=== PATIENT | female | born 1980 | race Caucasian/White ===

== ENCOUNTER 2016-07-23 15:16 | Emergency (ER) | payer BC, OTHER ==
[2016-07-23 15:46] VITALS: BP 113/74; RESP 16
[2016-07-23] MEDS ORDERED: NS 1,000 ML IV ONE ×2 (16:03→17:03)
[2016-07-23 16:22] LABS: % IMMATURE GRANULYOCYTES 0.3 % (0.0-1.1); ABSOLUTE IMMATURE GRANULOCYTES 0.01 10^3/uL (0.00-0.10); ADD DIFF? NO; ADD MORPH? NO; ADD SCAN? NO; ATYPICAL LYMPHOCYTE FLAG 20 (0-99); FRAGMENT RBC FLAG 0 (0-99); HEMATOCRIT 43.4 % (38.0-47.0); HEMOGLOBIN 15.2 g/dL (12.6-16.3); LEFT SHIFT FLG 0 (0-99); LIPEMIA HEMOLYSIS FLAG 90 (0-99); MEAN CELL HEMOGLOBIN 30.2 pg (27.9-34.1); MEAN CELL VOLUME 86.1 fL (81.5-99.8); PLATELET CLUMPS FLAG 0 (0-99); PLATELET COUNT 190 10^3/uL (150-400); RED BLOOD CELL COUNT 5.04 10^6/uL (4.18-5.33); RED CELL DISTRIBUTION WIDTH 12.2 % (11.5-15.2)
[2016-07-23 16:36] LABS: ANION GAP 14 mEq/L (8-16); CALCIUM 8.9 mg/dL (8.5-10.4); CARBON DIOXIDE 23 mEq/l (22-31); CHLORIDE 101 mEq/L (97-110); CREATININE 0.8 mg/dL (0.6-1.0); GLOMERULAR FILTRATION RATE > 60; GLUCOSE 84 mg/dL (70-100); POTASSIUM 3.8 mEq/L (3.5-5.2); SODIUM 138 mEq/L (134-144)
[2016-07-23] MEDS ORDERED: KETOROLAC 30 MG/1 ML SDV IVP ONE (17:03)
[2016-07-23 17:12] LABS: COLOR YELLOW; LEUKOCYTE ESTERASE,URINE NEGATIVE (NEGATIVE); NITRITE,URINE NEGATIVE (NEGATIVE); PH,URINE 5.5 (5.0-7.5)
--- NOTE | 2016-07-23 17:43 | UCPHY ---
H & P Patient Type: Established Chief Complaint Nursing Narrative: fever x 5 days. Tmax 102.3 per pt. Now has diarrhea since yesterday. Time Seen by Provider: 07/23/16 15:49 HPI/ROS: This patient reports in illness over the past 5 days or so consisting of fevers up to 102.3, chills, myalgias, diaphoresis, vomiting and diarrhea. She felt that her symptoms had significantly improved in terms of resolution of vomiting and diarrhea until today when she had recurrence of frequent loose watery stools. She has associated diminished appetite. She has partial improvement from [id number] antipyretics and analgesics with no other exacerbating factors. ROS: Mild fatigue. No other constitutional symptoms besides the fevers mentioned in HPI. HEENT: No significant nasal congestion. No sore throat. No ear pain. She does have a mild generalized headache consistent with previous headaches described as achy in nature 5/10 intensity. Neuro: No confusion. No neck stiffness. Pulmonary: No cough. Cardiovascular: Mild lightheadedness while standing today. GI: Anorexia and mild nausea. No vomiting for the past few days. No blood in her stool. : No urinary symptoms. 10 point ROS is otherwise negative. Source: Patient Exam Limitations: No limitations - Personal History LMP (Females 10-55): 1-7 Days Ago Current Tetanus Diphtheria and Acellular Pertussis (TDAP): Yes Tetanus Vaccine Date: 2014 - Medical/Surgical History PMH: Depression. Otherwise healthy Hx Asthma: No Hx Chronic Respiratory Disease: No Hx Diabetes: No Hx Cardiac Disease: No Hx Renal Disease: No Hx Cirrhosis: No Hx Alcoholism: No Hx HIV/AIDS: No Hx Splenectomy or Spleen Trauma: No Other PMH: AMA, MIGRANES, HX PP DEPRESSION PP ANXIETY, HX CSECTION 2011, SUBCHORIONIC BLEED AT 7W SONO, 2008 LAPAROTOMY R OVARIAB CYSTECTOMY BENIGN, TONSILS AND ADENOIDS AGE 10 WISDOM TEETH AGE 29 MONO 5TH G, Factor V Leidan deficiency - Family History Significant Family History: No pertinent family hx - Social History Smoking Status: Never smoked Alcohol Use: Occasionally Drug Use: None Additional Social History: No recent foreign travel. Her 4-year-old daughter had similar symptoms that resolved after 3 days. - Physical Exam Exam: General Appearance: Alert, no distress. Eyes: Pupils equal and round no pallor or injection. ENT, Mouth: Mucous membranes dry. Respiratory: There are no retractions, lungs are clear to auscultation. Cardiovascular: Regular rate and rhythm. No murmur gallop or rub Gastrointestinal: Abdomen is soft and nontender, no masses, bowel sounds normal. Neurological: Alert with no focal deficits Skin: Warm and dry, no rashes. Musculoskeletal: Neck is supple nontender. Extremities are symmetrical, full range of motion. Psychiatric: P mood and affect normal DIFFERENTIAL DIAGNOSIS: After history and physical exam differential diagnosis was considered for viral syndrome with diarrhea and dehydration, influenza a, UTI Constitutional: Initial Vital Signs Temperature (C) 37.2 C 07/23/16 15:41 Heart Rate 90 07/23/16 15:41 Respiratory Rate 16 07/23/16 15:41 Blood Pressure 113/74 07/23/16 15:41 O2 Sat (%) 98 07/23/16 15:41 O2 Delivery Mode Room Air Allergies/Adverse Reactions: aspirin Allergy (Verified 07/23/16 15:31) Home Medications: Medication Instructions Recorded Zoloft 25mg (RX) 1 tab PO DAILY 08/18/14 Ondansetron Odt [Zofran Odt] 4 - 8 mg PO Q4PRN PRN #4 tab 07/23/16 Medical Decision Making ED Course/Re-evaluation: IV normal saline bolus x2 L. Toradol with improvement in headache and myalgias. Review of labs reveals mild leukopenia but no neutropenia. Chemistries normal. Urinalysis normal except for ketones influenza negative. Patient is unable to provide a stool sample. Discussion: Findings consistent with viral illness with dehydration. I counseled regarding this. She improved with treatment. - Data Points Laboratory Results: Laboratory Results 07/23/16 16:16 07/23/16 16:16 07/23/16 07/23/16 07/23/16 17:05 17:00 16:16 WBC RBC Hgb Hct MCV MCH MCHC RDW Plt Count MPV Neut % (Auto) Lymph % (Auto) Appling % (Auto) Eos % (Auto) Baso % (Auto) Nucleat RBC Rel Count Absolute Neuts (auto) Absolute Lymphs (auto) Absolute Monos (auto) Absolute Eos (auto) Absolute Basos (auto) Absolute Nucleated RBC Immature Gran % Immature Gran # Sodium 138 mEq/L mEq/L (134-144) Potassium 3.8 mEq/L mEq/L (3.5-5.2) Chloride 101 mEq/L mEq/L (97-110) Carbon Dioxide 23 mEq/l mEq/l (22-31) Anion Gap 14 mEq/L mEq/L (8-16) BUN 12 mg/dL mg/dL (7-23) Creatinine 0.8 mg/dL mg/dL (0.6-1.0) Estimated GFR > 60 Glucose 84 mg/dL mg/dL (70-100) Calcium 8.9 mg/dL mg/dL (8.5-10.4) Urine Color YELLOW Urine Appearance CLEAR Urine pH 5.5 (5.0-7.5) Ur Specific Desdemona 1.015 (1.002-1.030) Urine Protein NEGATIVE (NEGATIVE) Urine Ketones 1+ H (NEGATIVE) Urine Blood NEGATIVE (NEGATIVE) Urine Nitrate NEGATIVE (NEGATIVE) Urine Bilirubin NEGATIVE (NEGATIVE) Urine Urobilinogen 0.2 EU EU (0.2-1.0) Ur Leukocyte Esterase NEGATIVE (NEGATIVE) Urine Glucose NEGATIVE (NEGATIVE) Urine Test NEGATIVE Influenza Typ A,B (DFA) 07/23/16 07/23/16 16:16 15:38 WBC 2.92 10^3/uL L 10^3/uL (3.80-9.50) RBC 5.04 10^6/uL 10^6/uL (4.18-5.33) Hgb 15.2 g/dL g/dL (12.6-16.3) Hct 43.4 % % (38.0-47.0) MCV 86.1 fL fL (81.5-99.8) MCH 30.2 pg pg (27.9-34.1) MCHC 35.0 g/dL g/dL (32.4-36.7) RDW 12.2 % % (11.5-15.2) Plt Count 190 10^3/uL 10^3/uL (150-400) MPV 11.0 fL fL (8.7-11.7) Neut % (Auto) 61.7 % % (39.3-74.2) Lymph % (Auto) 26.0 % % (15.0-45.0) Appling % (Auto) 10.3 % % (4.5-13.0) Eos % (Auto) 1.0 % % (0.6-7.6) Baso % (Auto) 0.7 % % (0.3-1.7) Nucleat RBC Rel Count 0.0 % % (0.0-0.2) Absolute Neuts (auto) 1.80 10^3/uL 10^3/uL (1.70-6.50) Absolute Lymphs (auto) 0.76 10^3/uL L 10^3/uL (1.00-3.00) Absolute Monos (auto) 0.30 10^3/uL 10^3/uL (0.30-0.80) Absolute Eos (auto) 0.03 10^3/uL 10^3/uL (0.03-0.40) Absolute Basos (auto) 0.02 10^3/uL 10^3/uL (0.02-0.10) Absolute Nucleated RBC 0.00 10^3/uL 10^3/uL (0-0.01) Immature Gran % 0.3 % % (0.0-1.1) Immature Gran # 0.01 10^3/uL 10^3/uL (0.00-0.10) Sodium Potassium Chloride Carbon Dioxide Anion Gap BUN Creatinine Estimated GFR Glucose Calcium Urine Color Urine Appearance Urine pH Ur Specific Desdemona Urine Protein Urine Ketones Urine Blood Urine Nitrate Urine Bilirubin Urine Urobilinogen Ur Leukocyte Esterase Urine Glucose Urine Test Influenza Typ A,B (DFA) NEGATIVE FOR FLU (NEGATIVE) Medications Given: Discontinued Medications Sodium Chloride (Ns) 1,000 mls @ 0 mls/hr IV ONCE ONE PRN Reason: Wide Open Stop: 07/23/16 16:04 Last Admin: 07/23/16 16:22 Dose: 1,000 mls Sodium Chloride (Ns) 1,000 mls @ 0 mls/hr IV ONCE ONE PRN Reason: Wide Open Stop: 07/23/16 17:04 Last Admin: 07/23/16 17:05 Dose: 1,000 mls Ketorolac Tromethamine (Toradol) 30 mg IVP EDNOW ONE Stop: 07/23/16 17:04 Last Admin: 07/23/16 17:15 Dose: 30 mg Departure - Departure Disposition: Home, Routine, Self-Care Clinical Impression: Viral syndrome, Acute diarrhea, Dehydration Condition: Good Instructions: Acute Diarrhea (ED), Viral Syndrome (ED) Additional Instructions: Diagnoses: 1. Viral syndrome 2. Acute diarrhea 3. Dehydration Plan: Drink plenty fluids Light diet to feel improved Zofran if needed for nausea vomiting Imodium [id number] for diarrhea as needed Ibuprofen for aches as needed. Your symptoms should improve over the next 1-3 days. Return for any significant worsening despite treatment plan Referrals: NONE *PRIMARY CARE P,. [Primary Care Provider] - As per Instructions Prescriptions: Ondansetron Odt [Zofran Odt] 4 - 8 mg PO Q4PRN PRN #4 tab PRN Reason: Vomiting - PQRS PQRS Measurement: NA
[2016-07-23 18:54] VITALS: PULSE 80; TEMP 98.8; O2SAT 96
== END 2016-07-23 18:21 | disposition home or self-care (01) ==
LOC: CED 15:16
DX: B34.9 Viral infection, unspecified (principal); R19.7 Diarrhea, unspecified; E86.0 Dehydration
CPT/HCPCS: 80048-PO; 81003-PO; 81025-PO; 85025-PO; 87400-PO; 96361-PO; 96374-PO; 99215-PO; G0463-PO; J1885

== ENCOUNTER → 2017-04-01 | Outpatient (CLI) | payer BC | LOC: BMCIMAGING 15:44 | PROVIDERS: ATTEND Physician Assistant | DX: M25.562 Pain in left knee (principal) ==